=== PATIENT | male | born 1965 | race Caucasian/White ===

== ENCOUNTER → 2017-09-04 09:18 | Emergency (ER) | payer MEDICAID, MEDICARE ==
[~2017-09-04 09:18] MED LIST: NS 0.9% 1000 ML* 1,000 ML IV ONE
[2017-09-04 09:22] VITALS: BP 134/77
--- NOTE | 2017-09-04 15:54 | ED ---
Ellen Ghotra Thomas, scribed for Héctor Upton MD on 09/04/17 at 0940 . Throat Pain/Nasal Congestion - HPI Summary HPI Summary: The pt is a 52 y/o M presenting to the ED c/o bilateral ear pain for the last few weeks. The pain is constant. The pain is aggravated by any increases in altitude. It is alleviated by nothing. The patient has treated the ear pain with [id number] cerumen drainage kids. Pt denies any other complaints. The patient describes feeling pressure as well as vibrations. He has a Hx of cerumen impaction. He is on Lisinopril 20mg. PMHx: HTN, back pain. PSHx: back surgery. SHx: current smoker, no alcohol use, no illicit drug use. FHx: HTN. - History of Current Complaint Chief Complaint: EDEarPain Time Seen by Provider: 09/04/17 09:29 Hx Obtained From: Patient Onset/Duration: Lasting Weeks - "last few weeks", Still Present Severity: Moderate Associated Signs And Symptoms: Positive: Negative Cough: None Related History: Other (Noted In Comments) - Hx of cerumen impaction PMH/Surg Hx/FS Hx/Imm Hx Previously Healthy: No Cardiovascular History: Reports: Hx Hypertension Musculoskeletal History: Reports: Hx Back Problems - Surgical History Surgery Procedure, Year, and Place: Back surgery Infectious Disease History: No Infectious Disease History: Denies: Traveled Outside the [place] in Last 30 Days - Family History Known Family History: Positive: Hypertension - Social History Alcohol Use: None Hx Substance Use: No Substance Use Type: Reports: None Hx Tobacco Use: Yes Smoking Status (MU): Heavy Every Day Tobacco Smoker Review of Systems Negative: Fever Positive: Ear Ache - bilateral for the last two weeks All Other Systems Reviewed And Are Negative: Yes Physical Exam Triage Information Reviewed: Yes Vital Signs On Initial Exam: Initial Vitals Temp Pulse Resp BP Pulse Ox 98.1 F 77 20 134/77 96 09/04/17 09:20 09/04/17 09:20 09/04/17 09:20 09/04/17 09:20 09/04/17 09:20 Vital Signs Reviewed: Yes Appearance: Positive: Well-Appearing, No Pain Distress, Obese Skin: Positive: Warm, Skin Color Reflects Adequate Perfusion, Dry Head/Face: Positive: Normal Head/Face Inspection Eyes: Positive: Normal ENT: Positive: Normal ENT inspection, TMs normal, Other - No cerumen impaction. Neck: Positive: Supple, Nontender Respiratory/Lung Sounds: Positive: Clear to Auscultation, Breath Sounds Present Cardiovascular: Positive: RRR Abdomen Description: Positive: Nontender, Soft Bowel Sounds: Positive: Present Musculoskeletal: Positive: Normal Neurological: Positive: Normal Psychiatric: Positive: Normal, Affect/Mood Appropriate Diagnostics - Vital Signs Vital Signs Temp Pulse Resp BP Pulse Ox 09/04/17 09:20 98.1 F 77 20 134/77 96 - Laboratory Lab Statement: Any lab studies that have been ordered have been reviewed, and results considered in the medical decision making process. EENT Course/Dx - Course Course Of Treatment: Mr. Mederos presented with bilateral ear pain. His PE was commpletely normal and I will try decongestiing him as see if that helps. He does have HTN and that will have to be watched. - Diagnoses Provider Diagnoses: Ear congestion Discharge - Discharge Plan Condition: Stable Disposition: HOME Prescriptions: Fexofenadine-Pseudoephedrine [Destiney-D 24 Hour Allergy] 1 tab PO BID #10 tab Patient Education Materials: Earache (ED) Referrals: Raleigh Taveras MD [Medical Doctor] - 3 Days Additional Instructions: Follow up with your primary care doctor in 3 days. Return to the emergency department for any new or worsening symptoms. The documentation as recorded by the Ellen beltre Thomas accurately reflects the service I personally performed and the decisions made by me, Héctor Upton MD.
== END | disposition home or self-care (01) ==
LOC: ED 09:18
DX: H83.8X3 Other specified diseases of inner ear, bilateral (principal); I10 Essential (primary) hypertension; Z72.0 Tobacco use
CPT/HCPCS: 99281